=== PATIENT | female | born 1965 | race Caucasian/White ===

== ENCOUNTER 2018-04-15 19:41 | Emergency (ER) | payer MEDICAID ==
[2018-04-15 23:06] LABS: URINE BLOOD (Dip) POC 2+ (NEGATIVE); URINE GLUCOSE (Dip) POC Negative (NEGATIVE); URINE KETONES (Dip) POC Trace (NEGATIVE); URINE LEUKOCYTE EST (Dip) POC Negative (NEGATIVE); URINE NITRITE (Dip) POC Negative (NEGATIVE); URINE TOTAL PROTEIN POC 1+ (NEGATIVE)
[2018-04-15 23:06] LABS: URINE PH (Dip) POC 5.5 (5.0-8.5)
[2018-04-15] MEDS: ONDANSETRON 4 MG INJ IV (23:10)
[2018-04-15] MEDS: SOD CHLORIDE 0.9% 1,000 ML IV (23:10)
[2018-04-15] MEDS: morphine 4 MG/ML VIAL IV (23:10)
[2018-04-15 23:18] LABS: ADD MAN DIFF? NO
[2018-04-15 23:21] LABS: BASOPHIL # 0.1 10^3/ul (0.0-0.1); BASOPHILS % 0.6 % (0.0-2.0); EOSINOPHILS # 0.3 10^3/ul (0.0-0.5); EOSINOPHILS % 2.3 % (0.0-7.0); HEMATOCRIT 39.2 % (37.0-47.0); HEMOGLOBIN 12.4 g/dl (12.0-16.0); LYMPHOCYTES # 3.2 10^3/ul (0.8-2.9); LYMPHOCYTES % 23.1 % (15.0-51.0); MEAN CORPUSCULAR HGB CONC 31.6 g/dl (32.0-37.0); MEAN CORPUSCULAR VOLUME 88.5 fl (82.0-101.0); MEAN PLATELET VOLUME 9.6 fl (7.4-10.4); MONOCYTE # 0.9 10^3/ul (0.3-0.9); MONOCYTES % 6.7 % (0.0-11.0); NEUTROPHIL # 9.1 10^3/ul (1.6-7.5); NEUTROPHILS % 66.7 % (39.0-77.0); PLATELET COUNT 279 10^3/UL (140-415); RED BLOOD COUNT 4.43 10^6/ul (4.20-5.40)
[2018-04-15 23:21] LABS: WHITE BLOOD COUNT 13.7 10^3/ul (4.8-10.8)
[2018-04-15 23:39] LABS: ALANINE AMINOTRANSFERASE 17 IU/L (13-69); ALBUMIN 4.5 g/dl (3.3-4.9); ALBUMIN/GLOBULIN RATIO 1.28; ALKALINE PHOSPHATASE 72 IU/L (42-121); ANION GAP 12 (5-13); ASPARTATE AMINO TRANSFERASE 20 IU/L (15-46); BILIRUBIN,INDIRECT 0.7 mg/dl (0-1.1); BILIRUBIN,TOTAL 0.7 mg/dl (0.2-1.3); BLOOD UREA NITROGEN 14 mg/dl (7-20); CALCIUM 9.7 mg/dl (8.4-10.2); CARBON DIOXIDE 28 mmol/L (21-31); CHLORIDE 99 mmol/L (97-110); CREATININE 0.65 mg/dl (0.44-1.00); Estimated GFR > 60 mL/min (>60); GLUCOSE 151 mg/dl (70-220); LIPASE 111 U/L (23-300); POTASSIUM 4.1 mmol/L (3.5-5.1); SODIUM 139 mmol/L (135-144)
[2018-04-15 23:46] LABS: ADD UMIC YES; UR ASCORBIC ACID NEGATIVE (NEGATIVE); UR BILIRUBIN (Dip) NEGATIVE (NEGATIVE); UR BLOOD (Dip) 2+ mg/dL (NEGATIVE); UR CLARITY CLOUDY (CLEAR); UR COLOR YELLOW (YELLOW); UR GLUCOSE (Dip) NEGATIVE (NEGATIVE); UR KETONES (Dip) TRACE mg/dL (NEGATIVE); UR LEUKOCYTE ESTERASE (Dip) NEGATIVE Leu/ul (NEGATIVE); UR MUCUS MANY /HPF (NONE SEEN); UR NITRITE (Dip) NEGATIVE (NEGATIVE); UR RBC 45 /HPF (0-5); UR SPECIFIC GRAVITY (Dip) 1.023 (1.003-1.030); UR SQUAMOUS EPITHELIAL CELL MODERATE /HPF (FEW); UR TOTAL PROTEIN (Dip) NEGATIVE (NEGATIVE); UR UROBILINOGEN (Dip) NEGATIVE (NEGATIVE); UR WBC 4 /HPF (0-5)
== END 2018-04-16 02:13 | disposition home or self-care (01) ==
LOC: E/R 19:41
DX: R10.9 Unspecified abdominal pain (principal); E11.9 Type 2 diabetes mellitus without complications; I10 Essential (primary) hypertension; J45.909 Unspecified asthma, uncomplicated; Z79.84 Long term (current) use of oral hypoglycemic drugs
CPT/HCPCS: 36415; 74176; 80053; 81001; 81003; 81025; 83690; 85025; 87086; 96374; 96375; 99285-25

== ENCOUNTER 2018-05-30 20:35 | Emergency (ER) | payer MEDICAID ==
[2018-05-30] MEDS: IPRATROPIUM (NEB) 0.5 MG/2.5 ML AMP NEB (23:51)
[2018-05-30] MEDS: ALBUTEROL 0.083% (NEB) 2.5 MG/3 ML AMP NEB (23:52)
[2018-05-31] MEDS: DEXAMETHASONE 4 MG/ML 1 ML INJ PO (00:53)
== END 2018-05-31 01:09 | disposition home or self-care (01) ==
LOC: FTE 20:35
DX: J20.9 Acute bronchitis, unspecified (principal); I10 Essential (primary) hypertension; E11.9 Type 2 diabetes mellitus without complications; Z79.84 Long term (current) use of oral hypoglycemic drugs
CPT/HCPCS: 94664; 99284-25

== ENCOUNTER 2018-06-28 17:37 | Emergency (ER) | payer MEDICAID ==
[2018-06-28] MEDS: ALBUTEROL 0.5% (NEB) 2.5 MG/0.5 ML AMP INH (18:55)
[2018-06-28] MEDS: IPRATROPIUM (NEB) 0.5 MG/2.5 ML AMP INH (18:55)
[2018-06-28] MEDS: predniSONE 20 MG TAB PO (19:00)
== END 2018-06-28 20:06 | disposition home or self-care (01) ==
LOC: FTE 17:37
DX: J45.901 Unspecified asthma with (acute) exacerbation (principal); E11.9 Type 2 diabetes mellitus without complications; I10 Essential (primary) hypertension; Z79.84 Long term (current) use of oral hypoglycemic drugs
CPT/HCPCS: 94644; 99283-25

== ENCOUNTER 2018-07-17 19:39 | Emergency (ER) | payer MEDICAID ==
[2018-07-17] MEDS: IPRATROPIUM (NEB) 0.5 MG/2.5 ML AMP NEB (21:15)
[2018-07-17] MEDS: METHYLPREDNISOLONE 125 MG INJ IV (21:15)
[2018-07-17] MEDS: ALBUTEROL 0.083% (NEB) 2.5 MG/3 ML AMP NEB (21:15)
== END 2018-07-17 23:00 | disposition home or self-care (01) ==
LOC: FTE 19:39
DX: J45.901 Unspecified asthma with (acute) exacerbation (principal); I10 Essential (primary) hypertension; E11.9 Type 2 diabetes mellitus without complications; Z79.84 Long term (current) use of oral hypoglycemic drugs
CPT/HCPCS: 71045; 94644; 96374; 99284-25

== ENCOUNTER 2018-10-27 20:27 | Emergency (ER) | payer MEDICAID ==
[2018-10-27] MEDS: ALBUTEROL 0.083% (NEB) 2.5 MG/3 ML AMP NEB (22:33)
[2018-10-27] MEDS: IPRATROPIUM (NEB) 0.5 MG/2.5 ML AMP NEB (22:33)
[2018-10-27] MEDS: KETOROLAC 30 MG INJ IM (22:48)
[2018-10-27] MEDS: predniSONE 20 MG TAB PO (22:48)
== END 2018-10-28 00:02 | disposition home or self-care (01) ==
LOC: FTE 10-28 00:02
DX: J45.901 Unspecified asthma with (acute) exacerbation (principal); I10 Essential (primary) hypertension; E11.9 Type 2 diabetes mellitus without complications; Z79.84 Long term (current) use of oral hypoglycemic drugs
CPT/HCPCS: 81025; 94664; 96372; 99284-25